=== PATIENT | female | born 1950 | race Caucasian/White ===

== ENCOUNTER 2021-10-07 07:07 | Outpatient (CLI) | payer MEDICARE, BC, SELFPAY | END 2021-10-07 07:08 | disposition home or self-care (01) | LOC: INJ CL 07:10 | PROVIDERS: PCP Family Medicine; Visit Provider Family Medicine | DX: M51.36 Other intervertebral disc degeneration, lumbar region (principal); M54.16 Radiculopathy, lumbar region; M48.062 Spinal stenosis, lumbar region with neurogenic claudication | CPT/HCPCS: 62323; J0702; Q9966 ==

== ENCOUNTER 2022-01-23 15:34 | Inpatient (IN) | payer MEDICARE, BC, SELFPAY ==
[2022-01-23] VITALS (12 sets, daily range): BP systolic 100–129; BP diastolic 59–82; PULSE 77–91; RESP 14–33; TEMP 36.8–37.4; O2SAT 2–100; BMI 37.8; BMI 41.6
--- NOTE | 2022-01-23 16:12 | ED.WEAKNESS ---
HPI - Weakness General Chief complaint: Weakness Stated complaint: Fatigue, sore throat Time Seen by Provider: 01/23/22 15:49 History of Present Illness HPI Narrative: 71-year-old woman presenting to the emergency department along with her granddaughter who lives in the same house with increasing weakness and just not as clear mentally. Apparently we started to get ill 2 and half days ago. Was Wednesday evening. Is not been eating or drinking much since then. Complaint of sore throat in particular; pretty bad. Mild cough. Little short of breath. No dysuria. No abdominal pain. No noted fever. No chest pain. Does not recall if has been incontinent of urine though on exam clearly there is the smell of urine. Is noted to be hypoxic upon arrival. Denies a history of respiratory disease. Review of records for past medical shows osteoarthritis, dyslipidemia, hypertension, lichen sclerosis And from relatively recent Orthopedics visit the following diagnoses-- 1. Left shoulder chronic full-thickness rotator cuff tear with grade 2 muscle atrophy and superior subluxation humeral head 2. 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 Left shoulder subacromial impingement syndrome 4. Left shoulder moderate intra-articular biceps tendinopathy and partial-thickness tearing proximal extra-articular biceps 5. Cervical spine degenerative disc disease, multilevel, moderate-severe Related Data Home Medications Medication Instructions Recorded Confirmed acetaminophen 325 mg tablet 650 mg PO Q6H PRN 01/24/22 01/24/22 (Tylenol) aspirin 325 mg tablet,delayed 325 mg PO DAILY 01/24/22 01/24/22 release losartan 50 mg tablet 50 mg PO DAILY 01/24/22 01/24/22 Previous Rx's Medication Instructions Recorded clotrimazole 1 % topical cream 1 applic topical QID #45 grams 01/26/22 guaifenesin 100 mg/5 mL oral liquid 100 - 200 mg (5 - 10 mL) PO Q4H 01/26/22 PRN Cough #473 mL ipratropium 20 mcg-albuterol 100 1 puff inhalation Q6H #4 grams 01/26/22 mcg/actuation mist for inhalation (Combivent Respimat) oseltamivir 30 mg capsule (Tamiflu) 30 mg PO BID #6 caps 01/26/22 torsemide 5 mg tablet 5 mg PO DAILY #30 tabs 01/26/22 triamcinolone acetonide 0.1 % 1 applic topical QID #80 grams 01/26/22 topical cream Allergies Allergy/AdvReac Type Severity Reaction Status Date / Time lisinopril Allergy Verified 01/23/22 15:50 Review of Systems Status of ROS: Reports: 6 or more systems reviewed and unremarkable except as noted in History and below Narrative: Review of systems was a little limited challenged due to mental status [facility] Medical History (Updated 01/26/22 @ 14:16 by Milka Rajput MD) Chronic kidney disease, stage 3a Essential (primary) hypertension Hyperlipemia Lichen sclerosus et atrophicus of the vulva Obesity (BMI 35.0-39.9 without comorbidity) JEF (obstructive sleep apnea) Surgical History H/O section S/P tonsillectomy S/P tubal ligation Status post right knee replacement Status post total left knee replacement Family History Father Arthritis Heart disease High blood pressure Sister Breast cancer High blood pressure Mother Heart disease Brother High blood pressure Social History Highest level of school completed/degree received: some college, no degree Smoking Status: Former smoker What tobacco products do you use: cigarettes Years smoked: 25 Smoking quit date/years: >15 years ago Do you use any of these nicotine containing products: None Second hand tobacco smoke exposure: No How often do you have a drink containing alcohol: monthly or less How many standard drinks containing alcohol do you have on a typical day: 1 or 2 How often do you have six or more drinks on one occasion: Never AUDIT-C Alcohol total score: 1 Non-prescribed substance use: denies use Caffeine: Yes (4 POPS PER DAY; 4 CUPS OF COFFEE PER DAY) service: No Exam Narrative: Exam Narrative: Somewhat distracted almost looking right past me. Smells of urine. Does attempt to cooperate with exam. Week when holding herself up to seated position. Cranial nerves 2-12 intact. Sounds congested in her face without facial swelling erythema or tenderness. Lungs trace clearing crepitus in the right upper lung field. Good air movement. No wheeze While congested, breathing easily, not labored but mildly tachypneic Abdomen is overweight soft and nontender. Cardiovascular is distant with regular rhythm regular rate Short neck hard to assess for JVD. Oropharynx is dry. A genital hyperemic/erythematous throughout the soft palate but discretely with area of erythema or well-demarcated area. Neck is supple without lymphadenopathy. Lower extremities with faint erythema it bilateral shins but without induration or significant calor. Mild pitting edema bilaterally. Well perfused generally. Const: Vital Signs, click to edit/add: Vital Signs - 24 hr 01/23/22 15:51 Temperature 99.3 F Pulse Rate [Pulse Oximeter] 84 Respiratory Rate 24 Blood Pressure [Ri ght Upper Arm] 114/70 Pulse Oximetry 86 L Oxygen Delivery Me thod Room Air Documenting provider has reviewed patient's vital signs: yes Course Course Hospital Course: HOSPITALIST DISCHARGE SUMMARY ATTENDING PHYSICIAN: Milka Rajput MD FINAL DIAGNOSIS: Influenza a Respiratory failure with hypoxia and hypercapnia Undiagnosed obstructive sleep apnea with positive nocturnal oximetry Morbid obesity HOSPITAL FOLLOWUP ISSUES: 1. Obstructive sleep apnea. Given her significant hypoxia with nocturnal oximetry and witnessed apnea we highly recommend that she proceed to outpatient destructive sleep apnea Sleep Medicine consult. 2. Influenza a, she has 3 days left on her Tamiflu. This was prescribed. 3. Dyspnea on exertion, multifactorial. Likely influenza a, mild pulmonary edema, untreated sleep apnea. Sending home on a trial of 5 mg of daily Demadex. PCP to follow up with REFERRALS WHILE ADMITTED: RT, PT, OT REFERRALS AFTER DISCHARGE: Sleep medicine BRIEF HOSPITAL COURSE: Celia is a 71-year-old who presented with respiratory failure with hypoxia and hypercapnia likely due it to acute influenza A. She was treated with Tamiflu, oxygen and general support. We noticed episodes of apnea and hypoxia worse at night. She likely has undiagnosed, untreated obstructive sleep apnea. On the day of discharge she was no longer hypoxic while at rest. She did show evidence hypoxia during sleep. I have asked her to complete her dose of Tamiflu, use Combivent inhaler and get a sleep study. She was also sent home on a trial of daily a.m. Demadex to help with some mild pulmonary edema. SUBSTANTIVE NOTATIONS ON IMAGING, LAB, MICROBIOLOGY/PATHOLOGY STUDIES: DISCHARGE MEDICATIONS: See Reconciled list - SIGNIFICANT CHANGES: Demadex 5 mg b.i.d. 3 days a Tamiflu Combivent inhaler p.r.n. Topical triamcinolone and clotrimazole her skin folds REVIEW OF SYSTEMS No new chest pain or dyspnea Pain controlled No voiding difficulties Tolerating diet challenge PHYSICAL EXAM: CONSTITUTIONAL: In no meds and brighter, more energy than when admitted. Still coughing intermittently. VITAL SIGNS: see record. HEENT: Normocephalic, atraumatic. PERRL, EOMI, conjunctivae pink, no scleral icterus. Ears and nose externally normal. Pharynx normal. NECK: No JVD. No carotid bruit, no thyromegaly, no adenopathy. CHEST: Clear to auscultation bilaterally. HEART: S1 and S2 normal. Edema 2+ ABDOMEN: Soft, nontender. Normal bowel sounds. MUSCULOSKELETAL: No gross joint deformity or swelling. NEURO: Cranial nerves intact. Grossly intact. No asymmetric findings. SKIN: No rashes, petechiae, concerning changes PSYCHIATRIC: Mood euthymic. DISPOSITION: Home with granddaughter Time spent on discharge 37 minutes. Reevaluation(s) Reevaluation #1: sprayed throat with Hurricaine spray which did help. Vital Signs Vital signs: Initial Vital Signs Pulse Oximetry 2 L 01/23/22 15:50 Oxygen Delivery Method 01/23/22 15:50 Vital Signs Pulse Oximetry 2 L 01/23/22 15:50 Oxygen Delivery Method 01/23/22 15:50 Temperature 98.2 F 01/26/22 07:00 Pulse Rate 74 01/26/22 07:00 Respiratory Rate 20 01/26/22 07:00 Blood Pressure 165/89 H 01/26/22 07:00 Pulse Oximetry 91 01/26/22 07:00 Oxygen Delivery Method 01/26/22 07:00 Oxygen Flow Rate 0.5 01/26/22 07:00 MDM - Weakness MDM Narrative Medical decision making narrative: Influenza a is indeed positive. CRP elevated at 7.9. I do go to assess asleep check and she has been resting with the nasal cannula prongs outside of her nose above her nose. Turned off the oxygen but subsequently desats to 81% while sleeping or 84-86% at rest and awake. Nasal prongs are replaced in oxygen reset 2 L. Has received a L of normal saline. Mildly hyponatremic. Has been mildly hypotensive in the low 100s relative to my review of records were I think often is in the 130 systolic. Blood cultures are pending concern sepsis but again influenza a came back positive. With these findings however though will be sending for chest CT PE protocol due to elevated D-dimer of over 2 which admittedly may remove present inflammatory state as well. Mildly elevated troponin I in the indeterminate range, I think might be client services representative of elevated proBNP Medical Records Attestation: I reviewed the patient's medical records. Lab Data Attestation: I reviewed the patient's lab results. Labs: Lab Results 01/23/22 01/23/22 01/23/22 Range/Units 16:14 16:20 16:20 WBC 6.31 (4.50-11.00) K/uL RBC 4.98 (4.00-5.20) m/uL Hgb 14.3 (12.0-16.0) gm/dL Hct 44.7 (33.0-51.0) % MCV 90 (80-100) fL MCH 29 (26-34) pg MCHC 32 (32-36) gm/dL RDW Coeff of Gemini 13.3 (11.5-15.5) % Plt Count 187 (140-440) K/uL Neut % (Auto) 81.0 H (42.0-72.0) % Lymph % (Auto) 7.1 L (20-44) % Wilkes % (Auto) 11.1 H (0.0-11.0) % Eos % (Auto) 0.0 (0.0-7.0) % Baso % (Auto) 0.2 (0.0-3.0) % Neut # (Auto) 5.10 (1.7-7.0) K/uL Lymph # (Auto) 0.40 L (0.90-2.90) K/uL Wilkes # (Auto) 0.70 (0.00-0.90) K/UL Eos # (Auto) 0.00 (0.00-0.50) K/uL Baso # (Auto) 0.01 (0.00-0.30) K/uL Abs Immat Gran (auto) 0.04 (0.00-0.30) K/uL Imm/Tot Granulo (auto) 0.6 % INR (0.91-1.10) D-Dimer Quant (PE/DVT) Cancelled VBG pH (7.32-7.43) VBG pCO2 (40-50) mmHG VBG pO2 (25-47) mmHG VBG HCO3 (21-28) mmol/L Sodium (135-149) mmol/L Potassium (3.6-5.1) mmol/L Chloride (96-114) mmol/L Carbon Dioxide (20-32) mmol/L BUN (7-30) mg/dL Creatinine (0.5-1.5) mg/dL Estimated Creat Clear Estimated GFR ml/min Glucose (60-115) mg/dL Venous Lactic Acid (Serial Order) Calcium (8.4-10.6) mg/dL Total Bilirubin (0.1-1.5) mg/dL Direct Bilirubin (0.0-0.5) mg/dL AST (12-35) U/L ALT (4-35) U/L Alkaline Phosphatase (40-150) U/L Troponin I (0.01-0.04) ng/mL C-Reactive Protein (0.5-1.0) mg/dL NT-Pro-B Natriuret Pep (0-125) PG/mL Total Protein (6.0-8.3) g/dL Albumin (3.3-5.0) g/dL Procalcitonin (<0.50) ng/mL Urine Color Yellow (Yellow) Urine Appearance Clear (Clear) Urine pH 5.5 (5.0-8.5) Ur Specific [place] 1.020 (1.000-1.030) Urine Protein Trace A (Negative) Urine Glucose (UA) Negative (Negative) Urine Ketones Negative (Negative) Urine Blood Negative (Negative) Urine Nitrite Negative (Negative) Urine Bilirubin 1+ A (Negative) Urine Urobilinogen 1.0 (0.2-1.0) Ur Leukocyte Esterase Trace A (Negative) Urine RBC 0-2 (0-2) Urine WBC 2-5 (0-5) Ur Squamous Epith Cells Few (None-Few) Urine Bacteria Few A (None) SARS-CoV-2 (PCR) (Negative) Influenza Type A (PCR) (Negative) Influenza Type B (PCR) (Negative) RSV (PCR) (Negative) Group A Strep DNA (Not Detectd) 01/23/22 01/23/22 01/23/22 Range/Units 16:20 16:20 16:20 WBC (4.50-11.00) K/uL RBC (4.00-5.20) m/uL Hgb (12.0-16.0) gm/dL Hct (33.0-51.0) % MCV (80-100) fL MCH (26-34) pg MCHC (32-36) gm/dL RDW Coeff of Gemini (11.5-15.5) % Plt Count (140-440) K/uL Neut % (Auto) (42.0-72.0) % Lymph % (Auto) (20-44) % Wilkes % (Auto) (0.0-11.0) % Eos % (Auto) (0.0-7.0) % Baso % (Auto) (0.0-3.0) % Neut # (Auto) (1.7-7.0) K/uL Lymph # (Auto) (0.90-2.90) K/uL Wilkes # (Auto) (0.00-0.90) K/UL Eos # (Auto) (0.00-0.50) K/uL Baso # (Auto) (0.00-0.30) K/uL Abs Immat Gran (auto) (0.00-0.30) K/uL Imm/Tot Granulo (auto) % INR 1.00 (0.91-1.10) D-Dimer Quant (PE/DVT) 2.02 H VBG pH (7.32-7.43) VBG pCO2 (40-50) mmHG VBG pO2 (25-47) mmHG VBG HCO3 (21-28) mmol/L Sodium 132 L (135-149) mmol/L Potassium 3.8 (3.6-5.1) mmol/L Chloride 95 L (96-114) mmol/L Carbon Dioxide 28 (20-32) mmol/L BUN 27 (7-30) mg/dL Creatinine 1.0 (0.5-1.5) mg/dL Estimated Creat Clear 44.56 Estimated GFR 60 ml/min Glucose 104 (60-115) mg/dL Venous Lactic Acid (Serial Order) Calcium 8.6 (8.4-10.6) mg/dL Total Bilirubin 0.5 (0.1-1.5) mg/dL Direct Bilirubin 0.2 (0.0-0.5) mg/dL AST 87 H (12-35) U/L ALT 35 (4-35) U/L Alkaline Phosphatase 87 (40-150) U/L Troponin I 0.06 H* (0.01-0.04) ng/mL C-Reactive Protein 7.9 H (0.5-1.0) mg/dL NT-Pro-B Natriuret Pep 658 H (0-125) PG/mL Total Protein 7.3 (6.0-8.3) g/dL Albumin 4.2 (3.3-5.0) g/dL Procalcitonin 0.25 (<0.50) ng/mL Urine Color (Yellow) Urine Appearance (Clear) Urine pH (5.0-8.5) Ur Specific [place] (1.000-1.030) Urine Protein (Negative) Urine Glucose (UA) (Negative) Urine Ketones (Negative) Urine Blood (Negative) Urine Nitrite (Negative) Urine Bilirubin (Negative) Urine Urobilinogen (0.2-1.0) Ur Leukocyte Esterase (Negative) Urine RBC (0-2) Urine WBC (0-5) Ur Squamous Epith Cells (None-Few) Urine Bacteria (None) SARS-CoV-2 (PCR) Negative SARS-CoV-2 (Negative) Influenza Type A (PCR) POSITIVE PCR FLU A A (Negative) Influenza Type B (PCR) Negative PCR FLU B (Negative) RSV (PCR) Negative PCR RSV (Negative) Group A Strep DNA (Not Detectd) 01/23/22 01/23/22 01/23/22 Range/Units 16:20 16:20 16:20 WBC (4.50-11.00) K/uL RBC (4.00-5.20) m/uL Hgb (12.0-16.0) gm/dL Hct (33.0-51.0) % MCV (80-100) fL MCH (26-34) pg MCHC (32-36) gm/dL RDW Coeff of Gemini (11.5-15.5) % Plt Count (140-440) K/uL Neut % (Auto) (42.0-72.0) % Lymph % (Auto) (20-44) % Wilkes % (Auto) (0.0-11.0) % Eos % (Auto) (0.0-7.0) % Baso % (Auto) (0.0-3.0) % Neut # (Auto) (1.7-7.0) K/uL Lymph # (Auto) (0.90-2.90) K/uL Wilkes # (Auto) (0.00-0.90) K/UL Eos # (Auto) (0.00-0.50) K/uL Baso # (Auto) (0.00-0.30) K/uL Abs Immat Gran (auto) (0.00-0.30) K/uL Imm/Tot Granulo (auto) % INR (0.91-1.10) D-Dimer Quant (PE/DVT) VBG pH 7.356 (7.32-7.43) VBG pCO2 55 H (40-50) mmHG VBG pO2 66.9 H (25-47) mmHG VBG HCO3 31 H (21-28) mmol/L Sodium (135-149) mmol/L Potassium (3.6-5.1) mmol/L Chloride (96-114) mmol/L Carbon Dioxide (20-32) mmol/L BUN (7-30) mg/dL Creatinine (0.5-1.5) mg/dL Estimated Creat Clear Estimated GFR ml/min Glucose (60-115) mg/dL Venous Lactic Acid (Serial Order) Calcium (8.4-10.6) mg/dL Total Bilirubin Cancelled (0.1-1.5) mg/dL Direct Bilirubin Cancelled (0.0-0.5) mg/dL AST Cancelled (12-35) U/L ALT Cancelled (4-35) U/L Alkaline Phosphatase Cancelled (40-150) U/L Troponin I Cancelled (0.01-0.04) ng/mL C-Reactive Protein (0.5-1.0) mg/dL NT-Pro-B Natriuret Pep Cancelled (0-125) PG/mL Total Protein Cancelled (6.0-8.3) g/dL Albumin Cancelled (3.3-5.0) g/dL Procalcitonin Cancelled (<0.50) ng/mL Urine Color (Yellow) Urine Appearance (Clear) Urine pH (5.0-8.5) Ur Specific [place] (1.000-1.030) Urine Protein (Negative) Urine Glucose (UA) (Negative) Urine Ketones (Negative) Urine Blood (Negative) Urine Nitrite (Negative) Urine Bilirubin (Negative) Urine Urobilinogen (0.2-1.0) Ur Leukocyte Esterase (Negative) Urine RBC (0-2) Urine WBC (0-5) Ur Squamous Epith Cells (None-Few) Urine Bacteria (None) SARS-CoV-2 (PCR) (Negative) Influenza Type A (PCR) (Negative) Influenza Type B (PCR) (Negative) RSV (PCR) (Negative) Group A Strep DNA (Not Detectd) 01/23/22 Range/Units 16:20 WBC (4.50-11.00) K/uL RBC (4.00-5.20) m/uL Hgb (12.0-16.0) gm/dL Hct (33.0-51.0) % MCV (80-100) fL MCH (26-34) pg MCHC (32-36) gm/dL RDW Coeff of Gemini (11.5-15.5) % Plt Count (140-440) K/uL Neut % (Auto) (42.0-72.0) % Lymph % (Auto) (20-44) % Wilkes % (Auto) (0.0-11.0) % Eos % (Auto) (0.0-7.0) % Baso % (Auto) (0.0-3.0) % Neut # (Auto) (1.7-7.0) K/uL Lymph # (Auto) (0.90-2.90) K/uL [place]kes # (Auto) (0.00-0.90) K/UL Eos # (Auto) (0.00-0.50) K/uL Baso # (Auto) (0.00-0.30) K/uL Abs Immat Gran (auto) (0.00-0.30) K/uL Imm/Tot Granulo (auto) % INR (0.91-1.10) D-Dimer Quant (PE/DVT) VBG pH (7.32-7.43) VBG pCO2 (40-50) mmHG VBG pO2 (25-47) mmHG VBG HCO3 (21-28) mmol/L Sodium (135-149) mmol/L Potassium (3.6-5.1) mmol/L Chloride (96-114) mmol/L Carbon Dioxide (20-32) mmol/L BUN (7-30) mg/dL Creatinine (0.5-1.5) mg/dL Estimated Creat Clear Estimated GFR ml/min Glucose (60-115) mg/dL Venous Lactic Acid (Serial Order) Calcium (8.4-10.6) mg/dL Total Bilirubin (0.1-1.5) mg/dL Direct Bilirubin (0.0-0.5) mg/dL AST (12-35) U/L ALT (4-35) U/L Alkaline Phosphatase (40-150) U/L Troponin I (0.01-0.04) ng/mL C-Reactive Protein (0.5-1.0) mg/dL NT-Pro-B Natriuret Pep (0-125) PG/mL Total Protein (6.0-8.3) g/dL Albumin (3.3-5.0) g/dL Procalcitonin (<0.50) ng/mL Urine Color (Yellow) Urine Appearance (Clear) Urine pH (5.0-8.5) Ur Specific [place] (1.000-1.030) Urine Protein (Negative) Urine Glucose (UA) (Negative) Urine Ketones (Negative) Urine Blood (Negative) Urine Nitrite (Negative) Urine Bilirubin (Negative) Urine Urobilinogen (0.2-1.0) Ur Leukocyte Esterase (Negative) Urine RBC (0-2) Urine WBC (0-5) Ur Squamous Epith Cells (None-Few) Urine Bacteria (None) SARS-CoV-2 (PCR) (Negative) Influenza Type A (PCR) (Negative) Influenza Type B (PCR) (Negative) RSV (PCR) (Negative) Group A Strep DNA NOT DETECTED (Not Detectd) ECG Data Attestation: I personally reviewed and interpreted this ECG as follows: (Normal sinus rate of 85 no ischemic changes.) Discharge Plan Discharge Clinical Impression: Influenza A, Dehydration, Respiratory failure, Altered mental status Patient Disposition: Admitted As Inpatient Condition: Improved Activity Level: Activity as Tolerated Discharge Diet: Regular
--- NOTE | 2022-01-23 16:13 | CRLHL7_ITS ---
For Patients: As a result of the Cures Act, medical imaging exams and procedure reports are released immediately into your electronic medical record. You may view this report before your referring provider. If you have questions, please contact your health care provider. INDICATION: Hypoxia. TECHNIQUE: Chest 1 views. COMPARISON: None. FINDINGS: Cardiovascular and mediastinum: Cardiomediastinal silhouette is within normal limits. Lungs and pleural spaces: Mild hypo inflation of the lungs, but the lungs are clear. No sign of pleural effusion. No pneumothorax. Bones and soft tissues: No significant findings. IMPRESSION: No acute cardiopulmonary process identified. Dictated by Calvin Soto MD @ 01/23/2022 5:13:39 PM (Electronically Signed)
[2022-01-23 16:35] LABS: HCO3 VBG 31 mmol/L (21-28); PCO2 VBG 55 mmHG (40-50); PO2 VBG 66.9 mmHG (25-47); pH VBG 7.356 (7.32-7.43)
[2022-01-23 16:43] LABS: Lactate Sepsis w/Reflex* 1.1 mmol/L (0.5-1.9)
[2022-01-23] MEDS: 0.9 % SODIUM CHLORIDE 1000 ml 1,000 ML IV (16:43)
[2022-01-23 16:46] LABS: Basophils Absolute Auto 0.01 K/uL (0.00-0.30); Basophils Percent Auto 0.2 % (0.0-3.0); Hematocrit 44.7 % (33.0-51.0); Hemoglobin* 14.3 gm/dL (12.0-16.0); Immature Granulocytes Abs Auto 0.04 K/uL (0.00-0.30); Immature Granulocytes Pct Auto 0.6 %; Lymphocytes Percent Auto 7.1 % (20-44); Mean Corpuscular HGB Conc 32 gm/dL (32-36); Mean Corpuscular Hemoglobin 29 pg (26-34); Mean Corpuscular Volume 90 fL (80-100); Monocytes Percent Auto 11.1 % (0.0-11.0); Platelet Count* 187 K/uL (140-440); RDW Coefficient of Variation % 13.3 % (11.5-15.5); Red Blood Count 4.98 m/uL (4.00-5.20); White Blood Count* 6.31 K/uL (4.50-11.00)
[2022-01-23 17:02] LABS: Albumin* 4.2 g/dL (3.3-5.0); Chloride* 95 mmol/L (96-114); Slide Review Reflex No
[2022-01-23 17:03] LABS: Potassium* 3.8 mmol/L (3.6-5.1); Sodium* 132 mmol/L (135-149)
[2022-01-23 17:05] LABS: Est. Creatinine Clearance* 44.56; Estimated Glomerular Filt Rate 60 ml/min
[2022-01-23 17:06] LABS: Alanine Aminotransferase* 35 U/L (4-35); Alkaline Phosphatase* 87 U/L (40-150); Aspartate Amino Transferase* 87 U/L (12-35); Bilirubin Direct* 0.2 mg/dL (0.0-0.5); Bilirubin Total* 0.5 mg/dL (0.1-1.5); Blood Urea Nitrogen* 27 mg/dL (7-30); Calcium* 8.6 mg/dL (8.4-10.6); Carbon Dioxide* 28 mmol/L (20-32); Glucose* 104 mg/dL (60-115); Total Protein* 7.3 g/dL (6.0-8.3)
[2022-01-23 17:09] LABS: C Reactive Protein* 7.9 mg/dL (0.5-1.0)
[2022-01-23 17:15] LABS: NT Pro B Type NatriureticPept* 658 PG/mL (0-125)
[2022-01-23 17:20] LABS: Strep A DNA Probe* NOT DETECTED (Not Detectd)
[2022-01-23 17:23] LABS: Procalcitonin* 0.25 ng/mL (<0.50)
[2022-01-23 17:28] LABS: Appearance Urine Clear (Clear); Bilirubin Urine 1+ (Negative); Blood Urine Negative (Negative); Color Urine Yellow (Yellow); Glucose Urine Negative (Negative); Ketones Urine Negative (Negative); Leukocyte Esterase Urine Trace (Negative); Nitrite Urine Negative (Negative); Protein Urine Trace (Negative); pH Urine 5.5 (5.0-8.5)
[2022-01-23 17:32] LABS: Prothrombin Time 13.8 Seconds
[2022-01-23 17:34] LABS: D Dimer Quantitative* 2.02 ug/ml (0.00-0.50); PCR FLU A POSITIVE PCR FLU A (Negative); PCR FLU B Negative PCR FLU B (Negative); PCR RSV Negative PCR RSV (Negative)
[2022-01-23 17:40] LABS: Bacteria Urine Few; RBC Urine 0-2 (0-2); Squamous Epithelial Cell Urine Few (None-Few)
[2022-01-23 17:40] LABS: Troponin I* 0.06 ng/mL (0.01-0.04)
[2022-01-23 17:41] LABS: SARS PCR* Negative SARS-CoV-2 (Negative)
--- NOTE | 2022-01-23 17:41 | ED.NURSE ---
Call from lab for critical result: Trop I 0.06.
--- NOTE | 2022-01-23 18:01 | CRLHL7_ITS ---
For Patients: As a result of the Century Cures Act, medical imaging exams and procedure reports are released immediately into your electronic medical record. You may view this report before your referring provider. If you have questions, please contact your health care provider. INDICATION: Elevated D-dimer, hypoxic, hypotensive, influenza A positive. TECHNIQUE: CT chest PE was acquired with 95 mL Isovue 370 IV contrast. Coronal and sagittal reformats were generated. COMPARISON: None. FINDINGS: Pulmonary arteries: The quality of enhancement of the pulmonary arteries is adequate. No filling defects to suggest pulmonary emboli. No findings of pulmonary artery hypertension. Thyroid: Unremarkable. Thoracic lymph nodes: No enlarged supraclavicular, mediastinal, hilar, or axillary lymph nodes. Mediastinum and esophagus: Unremarkable. Heart and vasculature: Unremarkable. Lungs: Unremarkable. Pleura: Unremarkable. Chest wall: Unremarkable. Upper abdomen: No acute or significant findings. Bones: Unremarkable for age. IMPRESSION: 1. No pulmonary embolism. 2. Clear lungs. Please note that all CT scans at this facility use dose modulation, iterative reconstruction, and/or weight-based dosing when appropriate to reduce radiation dose to as low as reasonably achievable. Dictated by Chava Kirk MD @ 01/23/2022 7:33:34 PM (Electronically Signed)
--- NOTE | 2022-01-23 18:30 | ED.NURSE ---
monitor was found to be turned off and unable to retrieve vs from admission to 183. she had remained stable with bps from 98-110. hr in the 80s and 02 sats greater than 94% with 2 l n/c. sats down to 86 without 02. 02 at 2 l continuously. does get sob with exertion noted.
[2022-01-23] MEDS: 0.9 % SODIUM CHLORIDE 500 ML 500 ML IV (18:44)
[2022-01-23] MEDS: ALBUTEROL SULFATE 2.5 MG/3 ML VIAL.NEB NEB (18:47)
[2022-01-23] MEDS: 0.9 % SODIUM CHLORIDE 1000 ml 1,000 ML 125 ML IV (20:35)
--- NOTE | 2022-01-23 20:43 | PM.IMHP1 ---
Hospitalist- H&P: HPI History of Present Illness Time Seen by Provider: 19:30 Date Seen: 01/23/22 Chief complaint: Fatigue, sore throat Narrative: Celia Echavarria is a 71 year old woman presents with the 2 day history of feeling sick, with headache, sore throat, weakness, decreased oral intake, confusion, sleepiness. Granddaughter in the home that the patient lives with, Kelly, finally urged her grandmother to come in for further assessment. Patient specifically denies chest heaviness, pressure, tightness, or pain. Denies dyspnea at rest, cough, paroxysmal nocturnal dyspnea, orthopnea. Has been too tired and weak to get out of bed. Has had some urinary incontinence. Has little recall of events of the last day because she has been sleeping most of it. Notices increased dyspnea with exertion when getting out of bed today. Denies nausea or vomiting. Acknowledges disinterest in eating or drinking. Has not had diarrhea or constipation. Has not had any blood loss of any sort. Denies trauma or injury. No recent travel. Aside from the confusion has had no other focal motor neurologic deficits. Does not recall fevers, rigors, diaphoresis. On the other hand has been cold. Review of Systems Status of ROS: Reports: 10 or more systems reviewed and unremarkable except as noted in History and below Narrative: Patient requests full resuscitation in the event of cardiopulmonary demise. Patient requests that her granddaughter Kelly be her power of commercial attorney for health should that be required. [facility] Medical History (Updated 01/23/22 @ 20:56 by Henry Ibrahim MD) Chronic kidney disease, stage 3a Essential (primary) hypertension Hyperlipemia Lichen sclerosus et atrophicus of the vulva Obesity (BMI 35.0-39.9 without comorbidity) Surgical History H/O section S/P tonsillectomy S/P tubal ligation Status post right knee replacement Status post total left knee replacement Family History Father Arthritis Heart disease High blood pressure Sister Breast cancer High blood pressure Mother Heart disease Brother High blood pressure Social History Smoking Status: Former smoker Do you use any of these nicotine containing products: None Second hand tobacco smoke exposure: No How often do you have a drink containing alcohol: monthly or less How many standard drinks containing alcohol do you have on a typical day: 1 or 2 How often do you have six or more drinks on one occasion: Never AUDIT-C Alcohol total score: 1 Non-prescribed substance use: denies use service: No Meds Home Medications and Allergies Home Medication Comments: Losartan 50 mg daily. Aspirin 3 and 25 mg once daily. Acetaminophen p.r.n. Allergies Allergy/AdvReac Type Severity Reaction Status Date / Time lisinopril Allergy Verified 01/23/22 15:50 Exam Narrative: Exam Narrative: Appears ill. Smells of urine. No acute distress. Alert, oriented to self, place, time, and even situation by the time I see her. Does not recall exactly the events of the past 24 hours. Remembers being very sleepy. Acknowledges not eating or drinking much. Cooperative, friendly. Mood and affect are congruent. Overweight. Hearing mildly decreased bilaterally. Vision grossly intact. External auditory canals are clear. Dentition in fair repair. Tight oral aperture. No icterus or conjunctival injection. Neck is supple. Midline trachea number thyroid. No JVD, hepatojugular reflux, or carotid bruits. No lymphadenopathy in the pre or postauricular chains, anterior-posterior cervical chains, submandibular or submental fossa, supra or infraclavicular fossa, or axilla bilaterally. Heart tones with regular rhythm, normal S1-S2. No obvious murmur, gallop, or rub. Lungs for the most part clear to auscultation. Scattered rhonchi that clear with coughing. No wheezing or rales. No CVA tenderness. Abdomen with active bowel sounds, soft, nontender. Obese. Extremities with trace edema pretibially bilaterally. Moves all 4 extremities. No focal motor neurologic deficits. Able to transfer from exam table to wheelchair. Skin is warm, dry, intact. No rashes, petechiae, or cyanosis. Influenza A positive. COVID negative. Const: Vital Signs, click to edit/add: Vital Signs - 24 hr 01/23/22 15:51 01/23/22 16:00 Temperature 99.3 F Pulse Rate [Pulse Oximeter] 84 Respiratory Rate 24 Blood Pressure [Ri ght Upper Arm] 114/70 Pulse Oximetry 86 L 86 L Oxygen Delivery Me thod Room Air Hospitalist - H&P: Result Labs Labs: Short CBC 01/23/22 Range/Units 16:20 WBC 6.31 (4.50-11.00) K/uL Hgb 14.3 (12.0-16.0) gm/dL Hct 44.7 (33.0-51.0) % Plt Count 187 (140-440) K/uL BMP 01/23/22 16:20 Sodium 132 L Potassium 3.8 Chloride 95 L Carbon Dioxide 28 BUN 27 Creatinine 1.0 Glucose 104 Calcium 8.6 Cardiac Enzymes 01/23/22 01/23/22 Range/Units 16:20 16:20 Troponin I 0.06 H* Cancelled (0.01-0.04) ng/mL Liver Function 01/23/22 01/23/22 Range/Units 16:20 16:20 Total Bilirubin 0.5 Cancelled (0.1-1.5) mg/dL Direct Bilirubin 0.2 Cancelled (0.0-0.5) mg/dL AST 87 H Cancelled (12-35) U/L ALT 35 Cancelled (4-35) U/L Alkaline Phosphatase 87 Cancelled (40-150) U/L Albumin 4.2 Cancelled (3.3-5.0) g/dL Urine 01/23/22 Range/Units 16:14 Urine Color Yellow (Yellow) Urine Appearance Clear (Clear) Urine pH 5.5 (5.0-8.5) Ur Specific [place] 1.020 (1.000-1.030) Urine Protein Trace A (Negative) Urine Glucose (UA) Negative (Negative) ECG ECG interpretation date: 01/23/22 ECG interpretation time: 19:30 Prior ECG tracings: not available for review Interpretation: Normal sinus rhythm. Imaging CT scan - chest: Attestation: I have reviewed the pertinent imaging results. Radiologist's impression: No pulmonary embolism. No other pulmonary abnormalities. Assessment and Plan Assessment and plan (1) Influenza A: Status: Acute (2) Acute respiratory failure with hypoxia and hypercapnia: Status: Acute (3) Dehydration: Status: Acute (4) Altered mental status: Status: Acute (5) Chronic kidney disease, stage 3a: Status: Acute (6) Elevated troponin I level: Status: Acute Plan 1. Reviewed with patient and granddaughter. 2. Answered their questions to their satisfaction. 3. Admit to the hospital. 4. Oxygen supplementation and as needed meter dose inhaler that she normally takes albuterol with spacer. 5. IV fluids. 6. Initiate oseltamivir, dosing per her decreased renal function with 75 mg today then 30 mg p.o. b.i.d. for 4 more days. 7. Hold her losartan. 8. Decrease her aspirin down to 81 mg daily. 9. Have asks respiratory therapy to consult and assist. 10. Continue with other supportive efforts. 11. Venous thromboembolism prophylaxis efforts. 12. Monitor labs, including troponin I's. 13. Telemetry for 24 hours. Repeat electrocardiogram. Consider echocardiogram.
--- NOTE | 2022-01-23 20:57 | ED.NURSE ---
taken to 255 via w/c. has stress incontinence with coughing. report was given to mac casper. grand daughter is in attendance.
[2022-01-23] MEDS: OSELTAMIVIR PHOSPHATE 75 MG CAPSULE PO (22:33)
[2022-01-23 23:07] LABS: HCO3 VBG 30 mmol/L (21-28); PCO2 VBG 55 mmHG (40-50); PO2 VBG 28.1 mmHG (25-47); pH VBG 7.354 (7.32-7.43)
[2022-01-23 23:19] LABS: Lactate Sepsis 2 Hour 0.9 mmol/L (0.5-1.9)
[2022-01-23] MEDS: guaiFENesin 100 MG/ML CUP PO (23:35)
[2022-01-23 23:41] LABS: Troponin I* 0.04 ng/mL (0.01-0.04)
[2022-01-24] VITALS (7 sets, daily range): BP systolic 127–170; BP diastolic 10–90; PULSE 71–86; RESP 18–22; TEMP 36.6–36.9; O2SAT 66–94
[2022-01-24] MEDS: guaiFENesin 100 MG/ML CUP PO ×2 (03:46→14:06)
--- NOTE | 2022-01-24 06:56 | PC.NURSE ---
END OF SHIFT NOTE: PT PLEASANT AND COOPERATIVE. PT WITH POSTERIOR BILATERAL EXPIATORY WHEEZING. TELE READS NSR. EKG x2 COMPLETED -NSR. TROPONIN TRENDING DOWN. PRODUCTIVE COUGH WITH CLEAR/YELLOW PHLEGM. ON 1-2.5L SUPPLEMENTAL OXYGEN TO MAINTAIN SPO2 >88%. PT HAS PERIODS OF APNEA WHILE ASLEEP. VITALS OTHERWISE STABLE. STRESS INCONTINENCE.
[2022-01-24 07:03] LABS: HCO3 VBG 32 mmol/L (21-28); PO2 VBG 39.9 mmHG (25-47); pH VBG 7.301 (7.32-7.43)
[2022-01-24 07:14] LABS: Hematocrit 41.2 % (33.0-51.0); Mean Corpuscular HGB Conc 32 gm/dL (32-36); Mean Corpuscular Hemoglobin 29 pg (26-34); Mean Corpuscular Volume 93 fL (80-100); PCO2 VBG 64 mmHG (40-50); Platelet Count* 165 K/uL (140-440); Red Blood Count 4.44 m/uL (4.00-5.20); White Blood Count* 5.24 K/uL (4.50-11.00)
[2022-01-24 07:15] LABS: Slide Review Reflex No
[2022-01-24 07:23] LABS: Chloride* 100 mmol/L (96-114)
[2022-01-24 07:24] LABS: Albumin* 3.6 g/dL (3.3-5.0); Potassium* 4.3 mmol/L (3.6-5.1); Sodium* 137 mmol/L (135-149)
[2022-01-24 07:26] LABS: Creatinine* 0.8 mg/dL (0.5-1.5); Est. Creatinine Clearance* 44.56; Estimated Glomerular Filt Rate 79 ml/min
[2022-01-24 07:27] LABS: Aspartate Amino Transferase* 102 U/L (12-35); Blood Urea Nitrogen* 26 mg/dL (7-30); Carbon Dioxide* 29 mmol/L (20-32); Glucose* 89 mg/dL (60-115); Phosphorus* 3.3 mg/dL (2.5-4.5)
[2022-01-24 07:30] LABS: C Reactive Protein* 7.3 mg/dL (0.5-1.0)
[2022-01-24 07:38] LABS: Troponin I* 0.04 ng/mL (0.01-0.04)
--- NOTE | 2022-01-24 08:07 | P.IMPN_ITS ---
Progress Note: A&P Assessment and plan (1) Acute respiratory failure with hypoxia and hypercapnia: Problem details: CO2 up - consulted with RT, starting pulmicort nebs, aerobika, overnight oximetry. echo for later today. adding back her losartan. component of undx/untreated JEF likely. Status: Acute (2) Influenza A: Problem details: continue antiviral and supportive cares Status: Acute (3) Chronic kidney disease, stage 3a: Status: Acute (4) Elevated troponin I level: Problem details: peaked, back to normal. echo today. Status: Acute Subjective Date Seen: 01/24/22 Interval history: Daily Progress Note - Hospital Medicine Day #: 2 CC: Influenza A, hypoxic OVERNIGHT UPDATES FROM STAFF & MED, LAB, IMAGING UPDATES Admitted last evening, weakness and hypoxia from influenza A. END OF SHIFT NOTE: PT PLEASANT AND COOPERATIVE. PT WITH POSTERIOR BILATERAL EXPIATORY WHEEZING. TELE READS NSR. EKG x2 COMPLETED -NSR. TROPONIN TRENDING DOWN. PRODUCTIVE COUGH WITH CLEAR/YELLOW PHLEGM. ON 1-2.5L SUPPLEMENTAL OXYGEN TO MAINTAIN SPO2 >88%. PT HAS PERIODS OF APNEA WHILE ASLEEP. VITALS OTHERWISE STABLE. STRESS INCONTINENCE. exhaused, chest wall hurts, headache -low sats throughout the evening, need 2L no hx of JEF, CPAP, or home oxygen use. T-max 99.1? Blood pressure 170/88, 117/59 Respiratory rate 20 2-24, pulse ox 92-95%, requiring 1 L per OxyMask CO2 retention noted overnight. At admission her CO2 was 55, this morning at 64., pH is dropped to 7.3 AST is mildly elevated, this is new since 2020 CRP has peaked CTA reviewed from admission: No PE, clear lungs Blood cultures are pending, urine culture pending and thus negative to date Review of Systems: See subjective Cardiac: No new chest pain/pressure/palpitations. Respiratory: no new dyspnea. GI: No abdominal bloating Objective: overweight, thick neck, not moving well. needs assistance. breathless with activity. Vitals: see above Lungs: decreased effort; coughing - no noted wheeze. Cardiac: S1S2. no murmurs. Disposition/Potential discharge - Likely to return to previous living situation. Total time is 35 minutes with greater than 50% spent in counseling and coordination of care. Exam Const: Vital Signs, click to edit/add: Vital Signs - 24 hr 01/23/22 15:51 01/23/22 16:00 01/23/22 18:40 Temperature 99.3 F Pulse Rate Pulse Rate [Pulse Oximeter] 84 79 Respiratory Rate 24 17 Blood Pressure [Ri ght Arm] Blood Pressure [Ri ght Upper Arm] 114/70 122/62 Pulse Oximetry 86 L 86 L 97 Oxygen Delivery Me thod Room Air Nasal Cannula Oxygen Flow Rate 01/23/22 15:50 01/23/22 19:00 01/23/22 19:44 Temperature Pulse Rate Pulse Rate [Pulse Oximeter] 77 82 Respiratory Rate 27 H Blood Pressure [Ri ght Arm] Blood Pressure [Ri ght Upper Arm] 108/76 105/76 Pulse Oximetry 2 L 100 99 Oxygen Delivery Me thod Nasal Cannula Nasal Cannula Nasal Cannula Oxygen Flow Rate 01/23/22 20:00 01/23/22 20:30 01/23/22 21:54 Temperature Pulse Rate Pulse Rate [Pulse Oximeter] 82 81 Respiratory Rate 33 H 14 22 Blood Pressure [Ri ght Arm] Blood Pressure [Ri ght Upper Arm] 129/70 100/82 Pulse Oximetry 97 98 98 Oxygen Delivery Me thod Nasal Cannula Nasal Cannula Nasal Cannula Oxygen Flow Rate 2 01/23/22 21:54 01/23/22 21:30 01/23/22 21:30 Temperature 98.2 F 98.2 F Pulse Rate Pulse Rate [Pulse Oximeter] Respiratory Rate 22 22 22 Blood Pressure [Ri ght Arm] 114/69 114/69 Blood Pressure [Ri ght Upper Arm] Pulse Oximetry 98 98 98 Oxygen Delivery Me thod Nasal Cannula Nasal Cannula Nasal Cannula Oxygen Flow Rate 2 2 2 01/23/22 23:00 01/23/22 23:00 01/23/22 23:00 Temperature Pulse Rate 91 Pulse Rate [Pulse Oximeter] Respiratory Rate 22 Blood Pressure [Ri ght Arm] Blood Pressure [Ri ght Upper Arm] Pulse Oximetry 95 Oxygen Delivery Me thod Oxygen Flow Rate 01/24/22 03:00 01/23/22 23:35 Temperature 98.0 F 99.1 F Pulse Rate Pulse Rate [Pulse Oximeter] Respiratory Rate 22 24 Blood Pressure [Ri ght Arm] 170/88 H 117/59 L Blood Pressure [Ri ght Upper Arm] Pulse Oximetry 92 95 Oxygen Delivery Me thod OxyMask Nasal Cannula Oxygen Flow Rate 1 2 Labs Labs: Laboratory Results - last 24 hr 01/23/22 01/23/22 01/23/22 16:14 16:20 16:20 WBC 6.31 RBC 4.98 Hgb 14.3 Hct 44.7 MCV 90 MCH 29 MCHC 32 RDW Coeff of Gemini 13.3 Plt Count 187 Neut % (Auto) 81.0 H Lymph % (Auto) 7.1 L [place] % (Auto) 11.1 H Eos % (Auto) 0.0 Baso % (Auto) 0.2 Neut # (Auto) 5.10 Lymph # (Auto) 0.40 L [place] # (Auto) 0.70 Eos # (Auto) 0.00 Baso # (Auto) 0.01 Abs Immat Gran (auto) 0.04 Imm/Tot Granulo (auto) 0.6 INR D-Dimer Quant (PE/DVT) Cancelled VBG pH VBG pCO2 VBG pO2 VBG HCO3 Sodium Potassium Chloride Carbon Dioxide BUN Creatinine Estimated Creat Clear Estimated GFR Glucose Venous Lactic Acid (Serial Order) Calcium Phosphorus Total Bilirubin Direct Bilirubin AST ALT Alkaline Phosphatase Troponin I C-Reactive Protein NT-Pro-B Natriuret Pep Total Protein Albumin Procalcitonin Urine Color Yellow Urine Appearance Clear Urine pH 5.5 Ur Specific [place] 1.020 Urine Protein Trace A Urine Glucose (UA) Negative Urine Ketones Negative Urine Blood Negative Urine Nitrite Negative Urine Bilirubin 1+ A Urine Urobilinogen 1.0 Ur Leukocyte Esterase Trace A Urine RBC 0-2 Urine WBC 2-5 Ur Squamous Epith Cells Few Urine Bacteria Few A SARS-CoV-2 (PCR) Influenza Type A (PCR) Influenza Type B (PCR) RSV (PCR) Group A Strep DNA 01/23/22 01/23/22 01/23/22 16:20 16:20 16:20 WBC RBC Hgb Hct MCV MCH MCHC RDW Coeff of Gemini Plt Count Neut % (Auto) Lymph % (Auto) [place] % (Auto) Eos % (Auto) Baso % (Auto) Neut # (Auto) Lymph # (Auto) [place] # (Auto) Eos # (Auto) Baso # (Auto) Abs Immat Gran (auto) Imm/Tot Granulo (auto) INR 1.00 D-Dimer Quant (PE/DVT) 2.02 H VBG pH VBG pCO2 VBG pO2 VBG HCO3 Sodium 132 L Potassium 3.8 Chloride 95 L Carbon Dioxide 28 BUN 27 Creatinine 1.0 Estimated Creat Clear 44.56 Estimated GFR 60 Glucose 104 Venous Lactic Acid (Serial Order) Calcium 8.6 Phosphorus Total Bilirubin 0.5 Direct Bilirubin 0.2 AST 87 H ALT 35 Alkaline Phosphatase 87 Troponin I 0.06 H* C-Reactive Protein 7.9 H NT-Pro-B Natriuret Pep 658 H Total Protein 7.3 Albumin 4.2 Procalcitonin 0.25 Urine Color Urine Appearance Urine pH Ur Specific [place] Urine Protein Urine Glucose (UA) Urine Ketones Urine Blood Urine Nitrite Urine Bilirubin Urine Urobilinogen Ur Leukocyte Esterase Urine RBC Urine WBC Ur Squamous Epith Cells Urine Bacteria SARS-CoV-2 (PCR) Negative SARS-CoV-2 Influenza Type A (PCR) POSITIVE PCR FLU A A Influenza Type B (PCR) Negative PCR FLU B RSV (PCR) Negative PCR RSV Group A Strep DNA 01/23/22 01/23/22 01/23/22 16:20 16:20 16:20 WBC RBC Hgb Hct MCV MCH MCHC RDW Coeff of Gemini Plt Count Neut % (Auto) Lymph % (Auto) [place] % (Auto) Eos % (Auto) Baso % (Auto) Neut # (Auto) Lymph # (Auto) [place] # (Auto) Eos # (Auto) Baso # (Auto) Abs Immat Gran (auto) Imm/Tot Granulo (auto) INR D-Dimer Quant (PE/DVT) VBG pH 7.356 VBG pCO2 55 H VBG pO2 66.9 H VBG HCO3 31 H Sodium Potassium Chloride Carbon Dioxide BUN Creatinine Estimated Creat Clear Estimated GFR Glucose Venous Lactic Acid (Serial Order) Calcium Phosphorus Total Bilirubin Cancelled Direct Bilirubin Cancelled AST Cancelled ALT Cancelled Alkaline Phosphatase Cancelled Troponin I Cancelled C-Reactive Protein NT-Pro-B Natriuret Pep Cancelled Total Protein Cancelled Albumin Cancelled Procalcitonin Cancelled Urine Color Urine Appearance Urine pH Ur Specific [place] Urine Protein Urine Glucose (UA) Urine Ketones Urine Blood Urine Nitrite Urine Bilirubin Urine Urobilinogen Ur Leukocyte Esterase Urine RBC Urine WBC Ur Squamous Epith Cells Urine Bacteria SARS-CoV-2 (PCR) Influenza Type A (PCR) Influenza Type B (PCR) RSV (PCR) Group A Strep DNA 01/23/22 01/23/22 01/23/22 16:20 23:00 23:00 WBC RBC Hgb Hct MCV MCH MCHC RDW Coeff of Gemini Plt Count Neut % (Auto) Lymph % (Auto) [place] % (Auto) Eos % (Auto) Baso % (Auto) Neut # (Auto) Lymph # (Auto) [place] # (Auto) Eos # (Auto) Baso # (Auto) Abs Immat Gran (auto) Imm/Tot Granulo (auto) INR D-Dimer Quant (PE/DVT) VBG pH 7.354 VBG pCO2 55 H VBG pO2 28.1 VBG HCO3 30 H Sodium Potassium Chloride Carbon Dioxide BUN Creatinine Estimated Creat Clear Estimated GFR Glucose Venous Lactic Acid (Serial Order) Calcium Phosphorus Total Bilirubin Direct Bilirubin AST ALT Alkaline Phosphatase Troponin I 0.04 C-Reactive Protein NT-Pro-B Natriuret Pep Total Protein Albumin Procalcitonin Urine Color Urine Appearance Urine pH Ur Specific [place] Urine Protein Urine Glucose (UA) Urine Ketones Urine Blood Urine Nitrite Urine Bilirubin Urine Urobilinogen Ur Leukocyte Esterase Urine RBC Urine WBC Ur Squamous Epith Cells Urine Bacteria SARS-CoV-2 (PCR) Influenza Type A (PCR) Influenza Type B (PCR) RSV (PCR) Group A Strep DNA NOT DETECTED 01/24/22 01/24/22 01/24/22 06:29 06:29 06:29 WBC 5.24 RBC 4.44 Hgb 13.0 Hct 41.2 MCV 93 MCH 29 MCHC 32 RDW Coeff of Gemini Plt Count 165 Neut % (Auto) Lymph % (Auto) [place] % (Auto) Eos % (Auto) Baso % (Auto) Neut # (Auto) Lymph # (Auto) [place] # (Auto) Eos # (Auto) Baso # (Auto) Abs Immat Gran (auto) Imm/Tot Granulo (auto) INR D-Dimer Quant (PE/DVT) VBG pH 7.301 L VBG pCO2 64 H* VBG pO2 39.9 VBG HCO3 32 H Sodium 137 Potassium 4.3 Chloride 100 Carbon Dioxide 29 BUN 26 Creatinine 0.8 Estimated Creat Clear 44.56 Estimated GFR 79 Glucose 89 Venous Lactic Acid (Serial Order) Calcium 8.0 L Phosphorus 3.3 Total Bilirubin Direct Bilirubin AST 102 H ALT Alkaline Phosphatase Troponin I 0.04 C-Reactive Protein 7.3 H NT-Pro-B Natriuret Pep Total Protein Albumin 3.6 Procalcitonin Urine Color Urine Appearance Urine pH Ur Specific [place] Urine Protein Urine Glucose (UA) Urine Ketones Urine Blood Urine Nitrite Urine Bilirubin Urine Urobilinogen Ur Leukocyte Esterase Urine RBC Urine WBC Ur Squamous Epith Cells Urine Bacteria SARS-CoV-2 (PCR) Influenza Type A (PCR) Influenza Type B (PCR) RSV (PCR) Group A Strep DNA
--- NOTE | 2022-01-24 08:23 | PC.NURSE ---
Critical value reported by lab - VBG pCo2 64, Dr. Rajput notified.
[2022-01-24] MEDS: ALBUTEROL INHALER 2 PUFF IH ×2 (08:58→14:07)
[2022-01-24] MEDS: OSELTAMIVIR 30 MG CAPSULE PO ×2 (09:00→20:30)
[2022-01-24] MEDS: ASPIRIN 81 MG TABLET EC PO (09:00)
[2022-01-24] MEDS: IBUPROFEN 400 MG TABLET PO ×2 (09:00→23:26)
[2022-01-24] MEDS: LOSARTAN POTASSIUM 50 MG TABLET PO (11:48)
[2022-01-24] MEDS: ACETAMINOPHEN 325 MG TABLET 650 MG PO (14:06)
[2022-01-24] MEDS: CLOTRIMAZOLE 1 % CREAM 1 APPLIC TOPICAL (17:41)
--- NOTE | 2022-01-24 18:25 | PC.NURSE ---
shift note: pt up 1/sba. IV patent x2. LS with insp wheezing. pt using 2L pnc to keep sats >90%. pt has slight sob with activity. pt received alb inhaler x2 and Robitussin. pt has excoriation to groin and under abd apron. Area with yellow discharge and foul smell. Dr. Carvajal notified and cream ordered. Pt medicated for chronic back pain. tele reading nsr
[2022-01-24] MEDS: BUDESONIDE 0.5 MG/2ML NEB NEB (20:30)
[2022-01-25 03:00] VITALS: BP 149/80; PULSE 79; RESP 22; TEMP 36.6; O2SAT 91
--- NOTE | 2022-01-25 05:51 | PC.NURSE ---
Shift note: Pt continuous to be on Tele monitor. SOB when ambulating and O2 maintained above 90% with 2L of oxygen. Occasional cough noted. V/S WNL. Assist of 1 with walker. Pain level rated between 4 and 8. Abdominal folds cleaned and dried.
[2022-01-25 06:42] LABS: HCO3 VBG 35 mmol/L (21-28); Ionized Calcium* 1.11 mmol/L (1.11-1.30); PO2 VBG 36.9 mmHG (25-47); pH VBG 7.329 (7.32-7.43)
[2022-01-25] MEDS: IBUPROFEN 400 MG TABLET PO ×2 (06:52→17:04)
[2022-01-25 06:53] LABS: PCO2 VBG 66 mmHG (40-50)
[2022-01-25 06:57] LABS: Hematocrit 41.1 % (33.0-51.0); Hemoglobin* 12.7 gm/dL (12.0-16.0); Mean Corpuscular HGB Conc 31 gm/dL (32-36); Mean Corpuscular Hemoglobin 29 pg (26-34); Mean Corpuscular Volume 94 fL (80-100); Platelet Count* 185 K/uL (140-440); Red Blood Count 4.38 m/uL (4.00-5.20); White Blood Count* 3.39 K/uL (4.50-11.00)
[2022-01-25 07:00] VITALS: PULSE 78; O2SAT 94
[2022-01-25 07:00] LABS: Slide Review Reflex No
[2022-01-25 07:04] LABS: Albumin* 3.6 g/dL (3.3-5.0); Chloride* 98 mmol/L (96-114)
[2022-01-25 07:05] LABS: Potassium* 4.3 mmol/L (3.6-5.1); Sodium* 137 mmol/L (135-149)
[2022-01-25 07:07] LABS: Aspartate Amino Transferase* 99 U/L (12-35); Bilirubin Total* 0.3 mg/dL (0.1-1.5); Carbon Dioxide* 33 mmol/L (20-32); Creatinine* 0.8 mg/dL (0.5-1.5); Est. Creatinine Clearance* 44.56; Estimated Glomerular Filt Rate 79 ml/min; Total Protein* 6.5 g/dL (6.0-8.3)
[2022-01-25 07:08] LABS: Alanine Aminotransferase* 40 U/L (4-35); Alkaline Phosphatase* 64 U/L (40-150); Blood Urea Nitrogen* 20 mg/dL (7-30); Calcium* 8.1 mg/dL (8.4-10.6); Glucose* 95 mg/dL (60-115)
[2022-01-25 07:10] LABS: C Reactive Protein* 4.5 mg/dL (0.5-1.0)
[2022-01-25 07:16] LABS: NT Pro B Type NatriureticPept* 100 PG/mL (0-125)
[2022-01-25 07:24] LABS: Procalcitonin* 0.17 ng/mL (<0.50)
[2022-01-25 07:54] LABS: Gamma Glutamyl Transpeptidase* 45 U/L (8-55)
[2022-01-25 08:16] VITALS: BP 134/73; PULSE 75; RESP 18; TEMP 37.1; O2SAT 96
[2022-01-25] MEDS: guaiFENesin 100 MG/ML CUP PO ×2 (09:10→17:57)
[2022-01-25] MEDS: ASPIRIN 81 MG TABLET EC PO (09:11)
[2022-01-25] MEDS: LOSARTAN POTASSIUM 50 MG TABLET PO (09:11)
[2022-01-25] MEDS: OSELTAMIVIR 30 MG CAPSULE PO ×2 (09:12→20:32)
[2022-01-25] MEDS: BUDESONIDE 0.5 MG/2ML NEB NEB ×2 (09:13→20:32)
[2022-01-25] MEDS: CLOTRIMAZOLE 1 % CREAM 1 APPLIC TOPICAL ×4 (09:14→20:32)
--- NOTE | 2022-01-25 09:15 | PM.IMPN1 ---
Progress Note: A&P Assessment and plan (1) Acute respiratory failure with hypoxia and hypercapnia: Problem details: Influenza a, likely undiagnosed JEF. Continue Pulmicort nebs, aerobika, overnight oximetry. echo for later today. adding back her losartan. Status: Acute (2) Influenza A: Problem details: continue antiviral and supportive cares Status: Acute (3) Chronic kidney disease, stage 3a: Status: Acute (4) Elevated troponin I level: Problem details: peaked, back to normal. echo today. Status: Acute Subjective Date Seen: 01/25/22 Interval history: Daily Progress Note - Hospital Medicine Day #: 3 CC: Influenza A, hypoxic OVERNIGHT UPDATES FROM STAFF & MED, LAB, IMAGING UPDATES this really took me for a ride i had no idea how bad you can feel with influenza but does state she is improving weakness and hypoxia from influenza A. CO2 retention noted on venous blood gas. Worsening skin candidiasis noted in her folds. BMI 41 Pt continuous to be on Tele monitor. SOB when ambulating and O2 maintained above 90% with 2L of oxygen. Occasional cough noted. V/S WNL. Assist of 1 with walker. Pain level rated between 4 and 8. Abdominal folds cleaned and dried. Afebrile overnight Blood pressure 134/73, 129/80 Mildly leukopenic consistent with her viral illness PH is normal at 7.32, pCO2 remains elevated overnight, mid 60s Metabolic panel essentially unremarkable, normal renal function Mild bump in her LFTs Final Impressions: 1. Normal LV size, normal wall thickness, normal global systolic function with an estimated EF of 70 - 75%. 2. Right ventricular cavity size is normal, global systolic RV function is normal. 3. No significant valve disease detected. 4. The inferior vena cava is normal sized, respiratory size variation greater than 50%. 5. No pericardial effusion. 6. The aortic sinus is normal sized with a maximal diameter of 3.2 cm. Blood cultures are negative today Urine culture, confusing results there are [phone] g negative rods but this morning's no says mixed Gram-positive matias no further workup. CTA reviewed from admission: No PE, clear lungs Blood cultures are pending, urine culture pending and thus negative to date Review of Systems: See subjective Cardiac: No new chest pain/pressure/palpitations. Respiratory: no new dyspnea. GI: No abdominal bloating Objective: overweight, thick neck, not moving well. needs assistance. breathless with activity. Vitals: see above left ear: mildly erythmatous but not retracted and no effusion Lungs: decreased effort; coughing - no noted wheeze. Cardiac: S1S2. no murmurs. abdominal skin folds: shiny erythema with malodor; c/w yeast. Disposition/Potential discharge - Likely to return to previous living situation. Total time is 35 minutes with greater than 50% spent in counseling and coordination of care. Exam Const: Vital Signs, click to edit/add: Vital Signs - 24 hr 01/24/22 11:00 01/24/22 15:00 01/24/22 15:00 Temperature 98.2 F Pulse Rate 71 Pulse Rate [Left B rachial] Respiratory Rate 20 Blood Pressure [Ri ght Arm] 127/60 Pulse Oximetry 92 94 Oxygen Delivery Me thod Room Air Oxygen Flow Rate 01/24/22 15:00 01/24/22 15:00 01/24/22 15:00 Temperature 98.4 F Pulse Rate Pulse Rate [Left B rachial] 74 74 Respiratory Rate 22 Blood Pressure [Ri ght Arm] 138/74 Pulse Oximetry 94 94 Oxygen Delivery Me thod Nasal Cannula Nasal Cannula Oxygen Flow Rate 2 2 01/24/22 19:00 01/24/22 23:00 01/24/22 23:00 Temperature 97.8 F Pulse Rate 77 Pulse Rate [Left B rachial] 77 Respiratory Rate 22 Blood Pressure [Ri ght Arm] 131/90 H Pulse Oximetry 90 90 Oxygen Delivery Me thod Nasal Cannula Oxygen Flow Rate 2 01/24/22 23:00 01/24/22 23:00 01/24/22 23:00 Temperature 98.3 F Pulse Rate Pulse Rate [Left B rachial] 79 Respiratory Rate 22 22 22 Blood Pressure [Ri ght Arm] 138/82 Pulse Oximetry 93 93 Oxygen Delivery Me thod Nasal Cannula Nasal Cannula Oxygen Flow Rate 2 2 01/25/22 03:00 01/25/22 08:16 Temperature 97.9 F 98.8 F Pulse Rate Pulse Rate [Left B rachial] 79 75 Respiratory Rate 22 18 Blood Pressure [Ri ght Arm] 149/80 H 134/73 Pulse Oximetry 91 96 Oxygen Delivery Me thod Nasal Cannula Nasal Cannula Oxygen Flow Rate 2 2 Labs Labs: Laboratory Results - last 24 hr 01/25/22 01/25/22 01/25/22 05:57 05:57 06:19 WBC 3.39 L RBC 4.38 Hgb 12.7 Hct 41.1 MCV 94 MCH 29 MCHC 31 L Plt Count 185 VBG pH 7.329 VBG pCO2 66 H* VBG pO2 36.9 VBG HCO3 35 H Sodium Potassium Chloride Carbon Dioxide BUN Creatinine Estimated Creat Clear Estimated GFR Glucose Calcium Ionized Calcium Diane 1.11 Magnesium Total Bilirubin GGT AST ALT Alkaline Phosphatase C-Reactive Protein NT-Pro-B Natriuret Pep Total Protein Albumin Procalcitonin TSH 3.430 01/25/22 06:19 WBC RBC Hgb Hct MCV MCH MCHC Plt Count VBG pH VBG pCO2 VBG pO2 VBG HCO3 Sodium 137 Potassium 4.3 Chloride 98 Carbon Dioxide 33 H BUN 20 Creatinine 0.8 Estimated Creat Clear 44.56 Estimated GFR 79 Glucose 95 Calcium 8.1 L Ionized Calcium Diane Magnesium 2.0 Total Bilirubin 0.3 GGT 45 AST 99 H ALT 40 H Alkaline Phosphatase 64 C-Reactive Protein 4.5 H NT-Pro-B Natriuret Pep 100 Total Protein 6.5 Albumin 3.6 Procalcitonin 0.17 TSH
[2022-01-25] MEDS: FLUCONAZOLE 100 MG TABLET 200 MG PO (10:19)
[2022-01-25] MEDS: cefTRIAXone 1 GM in 0.9 % SODIUM CHLORIDE Mini-bag 100 ML IVPB (11:15)
[2022-01-25 15:00] VITALS: BP 139/69; PULSE 73; RESP 20; TEMP 36.8; O2SAT 92; O2SAT 96
[2022-01-25] MEDS: TRIAMCINOLONE ACETONIDE CREAM 0.1 % 1 APPLIC TOPICAL ×3 (15:31→20:32)
--- NOTE | 2022-01-25 18:50 | PC.NURSE ---
shift note: pt afeb with stable vss. pt up /sba. Pt had Lt lat chest wall pain 10/29. Pt medicated with tylenol and ibuprofen then repositioned cont throughout the day. LS dim with insp wheezing to BNE. Pt using 2L pnc O2 throughout the day to keep sats >88%. groin area red, weeping and has foul odor. Area cleansed with soap and water then creams applied x2. Under rt breast red. cream applied under breast after cleansing skin. Pt incont of urine. bilat l/e with non pitting edema. IV replaced to Lt FA.
[2022-01-25 19:00] VITALS: BP 139/75; PULSE 73; RESP 20; TEMP 36.6; O2SAT 93
[2022-01-25 23:00] VITALS: BP 149/81; PULSE 72; RESP 20; TEMP 36.6; O2SAT 94
[2022-01-26 03:00] VITALS: BP 151/76; PULSE 75; RESP 20; TEMP 36.8; O2SAT 85
[2022-01-26] MEDS: IBUPROFEN 400 MG TABLET PO (03:47)
--- NOTE | 2022-01-26 05:20 | PC.NURSE ---
Shift note: At 2100 after Neb and other medication has been given, pt had a continuously mucoid productive cough for about 2 minutes. Pt stated I want discharge tomorrow. Educated that MD is solely responsible to make discharge orders and pt can discuss her discharge intention when MD comes for daily rounds. Pt started on sleep study at 0200. O2 level has been between 80 and 88.
[2022-01-26 07:00] VITALS: BP 165/89; PULSE 74; RESP 20; TEMP 36.8; O2SAT 91
[2022-01-26 07:58] LABS: HCO3 VBG 33 mmol/L (21-28); PCO2 VBG 52 mmHG (40-50); PO2 VBG 48.7 mmHG (25-47); pH VBG 7.407 (7.32-7.43)
[2022-01-26 08:36] LABS: Chloride* 101 mmol/L (96-114)
[2022-01-26 08:37] LABS: Potassium* 3.7 mmol/L (3.6-5.1); Sodium* 138 mmol/L (135-149)
[2022-01-26 08:39] LABS: Creatinine* 0.6 mg/dL (0.5-1.5); Est. Creatinine Clearance* 44.56; Estimated Glomerular Filt Rate 96 ml/min
[2022-01-26 08:40] LABS: Blood Urea Nitrogen* 16 mg/dL (7-30); Carbon Dioxide* 32 mmol/L (20-32)
[2022-01-26 08:41] LABS: Calcium* 8.7 mg/dL (8.4-10.6); Glucose* 106 mg/dL (60-115)
[2022-01-26 09:28] VITALS: O2SAT 90; O2SAT 97
[2022-01-26] MEDS: BUDESONIDE 0.5 MG/2ML NEB NEB (09:32)
[2022-01-26] MEDS: TRIAMCINOLONE ACETONIDE CREAM 0.1 % 1 APPLIC TOPICAL (09:32)
[2022-01-26] MEDS: LOSARTAN POTASSIUM 50 MG TABLET PO (09:32)
[2022-01-26] MEDS: CLOTRIMAZOLE 1 % CREAM 1 APPLIC TOPICAL (09:32)
[2022-01-26] MEDS: ASPIRIN 81 MG TABLET EC PO (09:33)
[2022-01-26] MEDS: OSELTAMIVIR 30 MG CAPSULE PO (09:33)
[2022-01-26] MEDS: TORSEMIDE 5 MG TABLET PO (09:44)
--- NOTE | 2022-01-26 10:30 | P.DS_ITS ---
DS: Providers Provider Date Seen: 01/26/22 Date of admission: 01/23/22 20:04 Primary care physician: Evy Gomez DO Admitting Clinician: Henry Ibrahim MD Consults: 01/23/22 19:56 Consult to Respiratory Therapy [CONS] Routine Comment: Reason(s) for RT Consult:: Consult Comment: Influenza, hypoxemia 01/24/22 00:22 Consult to Occupational Therapy [CONS] Routine Comment: Reason(s) for OT Consult:: Difficulty Managing ADLs Any Restrictions?:: No Restrictions Consult to Physical Therapy [CONS] Routine Comment: Reason(s) for PT Consult:: Weakness Evaluate Ambulation Any Restrictions?:: No Restrictions 01/24/22 10:03 Consult to Respiratory Therapy [CONS] Routine Comment: Reason(s) for RT Consult:: Consult Attending Physician on discharge: [facility]: 01/26/22 DS: Diagnosis Discharge Diagnosis (1) Influenza A: Status: Acute Problem details: Finish Tamiflu as an outpatient. Combivent. Trial of Demadex as an outpatient. Sleep study needed. (2) JEF (obstructive sleep apnea): Status: Acute Problem details: Did not qualify for home O2. Strongly urged the patient to get a sleep study given her nocturnal oximetry measurements and high 70s 80s. (3) Candidal intertrigo: Status: Acute Problem details: Topical triamcinolone and clotrimazole (4) Essential (primary) hypertension: Status: Acute Problem details: Resume home meds (5) Chronic kidney disease, stage 3a: Status: Acute DS: Summary Hospital Course Hospital Course: HOSPITALIST DISCHARGE SUMMARY ATTENDING PHYSICIAN: Milka Rajput MD FINAL DIAGNOSIS: Influenza a Respiratory failure with hypoxia and hypercapnia Undiagnosed obstructive sleep apnea with positive nocturnal oximetry Morbid obesity HOSPITAL FOLLOWUP ISSUES: 1. Obstructive sleep apnea. Given her significant hypoxia with nocturnal oxim etry and witnessed apnea we highly recommend that she proceed to outpatient destructive sleep apnea Sleep Medicine consult. 2. Influenza a, she has 3 days left on her Tamiflu. This was prescribed. 3. Dyspnea on exertion, multifactorial. Likely influenza a, mild pulmonary edema, untreated sleep apnea. Sending home on a trial of 5 mg of daily Demadex. PCP to follow up with REFERRALS WHILE ADMITTED: RT, PT, OT REFERRALS AFTER DISCHARGE: Sleep medicine BRIEF HOSPITAL COURSE: Celia is a 71-year-old who presented with respiratory failure with hypoxia and hypercapnia likely due it to acute influenza A. She was treated with Tamiflu, oxygen and general support. We noticed episodes of apnea and hypoxia worse at night. She likely has undiagnosed, untreated obstructive sleep apnea. On the day of discharge she was no longer hypoxic while at rest. She did show evidence hypoxia during sleep. I have asked her to complete her dose of Tamiflu, use Combivent inhaler and get a sleep study. She was also sent home on a trial of daily a.m. Demadex to help with some mild pulmonary edema. SUBSTANTIVE NOTATIONS ON IMAGING, LAB, MICROBIOLOGY/PATHOLOGY STUDIES: DISCHARGE MEDICATIONS: See Reconciled list - SIGNIFICANT CHANGES: Demadex 5 mg b.i.d. 3 days a Tamiflu Combivent inhaler p.r.n. Topical triamcinolone and clotrimazole her skin folds REVIEW OF SYSTEMS No new chest pain or dyspnea Pain controlled No voiding difficulties Tolerating diet challenge PHYSICAL EXAM: CONSTITUTIONAL: In no meds and brighter, more energy than when admitted. Still coughing intermittently. VITAL SIGNS: see record. HEENT: Normocephalic, atraumatic. PERRL, EOMI, conjunctivae pink, no scleral icterus. Ears and nose externally normal. Pharynx normal. NECK: No JVD. No carotid bruit, no thyromegaly, no adenopathy. CHEST: Clear to auscultation bilaterally. HEART: S1 and S2 normal. Edema 2+ ABDOMEN: Soft, nontender. Normal bowel sounds. MUSCULOSKELETAL: No gross joint deformity or swelling. NEURO: Cranial nerves intact. Grossly intact. No asymmetric findings. SKIN: No rashes, petechiae, concerning changes PSYCHIATRIC: Mood euthymic. DISPOSITION: Home with granddaughter Time spent on discharge 37 minutes. Status at Discharge Functional status at discharge: uses cane/walker Overall status at discharge: patient is progressing back to baseline Time Spent with Patient Time attestation: Total time spent providing and/or coordinating discharge services: Time spent: Greater than 30 minutes Exam Const: Vital Signs, click to edit/add: Vital Signs - 24 hr 01/25/22 15:00 01/25/22 15:00 01/25/22 15:00 Temperature 98.3 F Pulse Rate [Left B rachial] 73 Pulse Rate [Right Pulse Oximeter] Respiratory Rate 20 Blood Pressure [Ri ght Arm] 139/69 Pulse Oximetry 96 92 96 Oxygen Delivery Me thod Nasal Cannula Nasal Cannula Oxygen Flow Rate 2 2 01/25/22 19:00 01/25/22 23:00 01/25/22 23:00 Temperature 97.9 F Pulse Rate [Left B rachial] 73 Pulse Rate [Right Pulse Oximeter] Respiratory Rate 20 20 Blood Pressure [Ri ght Arm] 139/75 Pulse Oximetry 93 94 Oxygen Delivery Me thod Nasal Cannula Oxygen Flow Rate 2 01/25/22 23:00 01/25/22 23:00 01/26/22 03:00 Temperature 98 F 98.2 F Pulse Rate [Left B rachial] 72 75 Pulse Rate [Right Pulse Oximeter] Respiratory Rate 20 20 20 Blood Pressure [Ri ght Arm] 149/81 H 151/76 H Pulse Oximetry 94 94 85 L Oxygen Delivery Me thod Nasal Cannula Nasal Cannula Nasal Cannula Oxygen Flow Rate 2 2 01/26/22 07:00 01/26/22 07:00 01/26/22 07:00 Temperature Pulse Rate [Left B rachial] Pulse Rate [Right Pulse Oximeter] 74 Respiratory Rate 20 20 Blood Pressure [Ri ght Arm] Pulse Oximetry 91 91 Oxygen Delivery Me thod Nasal Cannula Oxygen Flow Rate 0.5 01/26/22 07:00 Temperature 98.2 F Pulse Rate [Left B rachial] Pulse Rate [Right Pulse Oximeter] 74 Respiratory Rate 20 Blood Pressure [Ri ght Arm] 165/89 H Pulse Oximetry 91 Oxygen Delivery Me thod Nasal Cannula Oxygen Flow Rate 0.5 DS: Data Data Completed and Pending Labs on day of discharge: Labs from last 24 hours 01/26/22 01/26/22 07:46 07:46 VBG pH 7.407 VBG pCO2 52 H VBG pO2 48.7 H VBG HCO3 33 H Sodium 138 Potassium 3.7 Chloride 101 Carbon Dioxide 32 BUN 16 Creatinine 0.6 Estimated Creat Clear 44.56 Estimated GFR 96 Glucose 106 Calcium 8.7 C-Reactive Protein 3.0 H Preliminary micro results at discharge 01/23/22 16:50 Blood Culture - Preliminary Blood NO GROWTH AFTER 48 HOURS 01/23/22 16:20 Blood Culture - Preliminary Blood NO GROWTH AFTER 48 HOURS Discharge Plan Discharge Disposition: Home, Self-Care Date of Admission: 01/23/22 20:04 Attending Provider on Discharge: Milka Rajput Primary Care Provider: Evy Gomez Condition: Improved Anticipated Discharge Date/Time: 01/26/22 10:30 Discharge Medications: New guaifenesin 100 mg/5 mL Liquid 100 - 200 mg PO Q4H PRN (Reason: Cough) Qty: 473 0RF torsemide 5 mg Tablet 5 mg PO DAILY Qty: 30 0RF clotrimazole 1 % Cream 1 applic topical QID Qty: 45 0RF triamcinolone acetonide 0.1 % Cream 1 applic topical QID Qty: 80 0RF oseltamivir [Tamiflu] 30 mg Capsule 30 mg PO BID Qty: 6 0RF Rx Instructions: THREE MORE DAYS OF TAMIFLU, TAKE UNTIL GONE Combivent Respimat 20-100 mcg/actuation mist 1 puff inhalation Q6H Qty: 4 2RF Rx Instructions: FOR COUGH AND SHORTNESS OF BREATH; INFLUENZA A Continued losartan 50 mg tablet 50 mg PO DAILY aspirin 325 mg tablet,delayed release (DR/EC) 325 mg PO DAILY acetaminophen [Tylenol] 325 mg tablet 650 mg PO Q6H PRN Discharge Orders: Discharge Order (Routine); Ordered 01/26/22 Ordered By: Milka Rajput Patient Education: Guaifenesin (By mouth), Nystatin/Triamcinolone (On the skin), Clotrimazole (Into the mouth), Torsemide (By mouth), Oseltamivir (By mouth) (Tamiflu), Influenza (DC), Weakness (DC), How to Use a Metered-Dose Inhaler and a Spacer (DC) Additional Instructions: Influenza A will cause you to feel fatigued and cough for several more days. You have tamiflu (antiviral) to take for three more days. Your oxygen levels drop considerably when you sleep, I believe you have undiagnosed Obstructive Sleep Apnea (JEF) and you need to have your PCP place an order for a sleep study (this is not able to be ordered by the hospitalist); likely you will get a CPAP with a little oxygen at night. Weight loss and exercise is definitely needed to help this problem. In the short term, use the inhaler and robitussin for cough and shortness of breath. the Aerobika device is being sent home to help your lungs stay open more, use this several times a day. Your abdominal folds have yeast, I've sent two creams - but both in your hand - rub together and apply 2-4x a day to irritated red skin. You can apply this to your labia/groin as well. PLEASE WEIGH YOURSELF DAILY AND SEE YOUR PCP WITHIN TWO WEEKS. Activity Level: Activity as Tolerated Discharge Diet: Regular Follow Up Appointments: Evy Gomez, [Primary Care Provider] - (PLEASE CALL [facility] TO MAKE A PCP FOLLOW UP IN 1-2 WEEKS REGARDING YOUR [facility] STAY.) Forms: [employer] Info Instructions
--- NOTE | 2022-01-26 14:24 | PC.NURSE ---
shift note: pt afebrile, VSS, SBA, Pt. denied pain, N/V/SOB. Pt. on RA. groin area red, and belly folds reddened, no weeping. Area cleansed with soap and water then creams applied. Under rt breast red. cream applied under breast after cleansing skin. Pt. discharged at 1310. IV removed intact. pt. belongings list signed and discharge instructions and pt. verbalized understanding. Pt. will call and make her follow-up appointment within 1-2 wks of hospital stay.
[2022-01-26 15:57] LABS: NT Pro B Type NatriureticPept* 112 PG/mL (0-125)
== END 2022-01-26 13:10 | disposition home or self-care (01) | DRG 193 ==
LOC: ED 19:38 → MEDSURG 20:05
PROVIDERS: Family Medicine; Admitting Provider Internal Medicine; Emergency Provider Family Medicine; PCP Family Medicine; Visit Provider Internal Medicine
DX: J10.1 Influenza due to other identified influenza virus with other respiratory manifestations (principal); J96.01 Acute respiratory failure with hypoxia; J96.02 Acute respiratory failure with hypercapnia; Z68.41 Body mass index [BMI] 40.0-44.9, adult; R51.9 Headache, unspecified; G47.33 Obstructive sleep apnea (adult) (pediatric); E66.01 Morbid (severe) obesity due to excess calories; I12.9 Hypertensive chronic kidney disease with stage 1 through stage 4 chronic kidney disease, or unspecified chronic kidney disease; N18.31 Chronic kidney disease, stage 3a; E86.0 Dehydration; R41.0 Disorientation, unspecified; E78.5 Hyperlipidemia, unspecified; R32 Unspecified urinary incontinence; B37.2 Candidiasis of skin and nail; R35.0 Frequency of micturition
CPT/HCPCS: 36415; 71045; 71260; 80048; 80053; 80069; 80076; 81001; 82330; 82803; 82977; 83735; 83880; 84145; 84443; 84450; 84484; 85025; 85027; 85379; 85610; 86140; 87040; 87086; 87186; 87502; 87634; 87635; 87651; 93005; 93306; 94640; 94664; 94761; 97110; 97116; 97161; 97165; 97530; 97535; 99284; A9270; J0696; J7030; J7120; J7626; Q9967

== ENCOUNTER 2022-12-01 07:32 | Outpatient (CLI) | payer MEDICARE, BC, SELFPAY | END 2022-12-01 07:33 | disposition home or self-care (01) | PROVIDERS: PCP Family Medicine; Visit Provider Family Medicine | DX: M51.36 Other intervertebral disc degeneration, lumbar region (principal); M54.16 Radiculopathy, lumbar region | CPT/HCPCS: 64483; J1100; Q9966 ==

== ENCOUNTER 2022-12-07 11:56 | Outpatient (CLI) | payer MEDICARE, BC, SELFPAY ==
--- NOTE | 2022-12-07 12:27 | W.ANESCHARGE ---
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
--- NOTE | 2022-12-07 13:24 | P.ANES_ITS ---
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
== END 2022-12-07 11:57 | disposition home or self-care (01) ==
LOC: OP CLINIC 11:56
PROVIDERS: PCP Family Medicine; Visit Provider Surgery
DX: Z12.11 Encounter for screening for malignant neoplasm of colon (principal); K64.8 Other hemorrhoids; D17.5 Benign lipomatous neoplasm of intra-abdominal organs
CPT/HCPCS: 45378; 811; 812; 99100; J2704

== ENCOUNTER 2023-02-23 10:49 | Outpatient (CLI) | payer MEDICARE, BC, SELFPAY | END 2023-02-23 10:50 | disposition home or self-care (01) | LOC: INJ CL 10:49 | PROVIDERS: PCP Family Medicine; Visit Provider Family Medicine | DX: M51.36 Other intervertebral disc degeneration, lumbar region (principal); M54.16 Radiculopathy, lumbar region | CPT/HCPCS: 64483; J1100; Q9966 ==